=== PATIENT | male | born 1930 | race African-American/Black ===

== ENCOUNTER 2017-05-14 13:44 | Observation (INO) | payer OTHER, BC ==
[~2017-05-14] VITALS: Ht 185.4 cm; Wt 80.7 kg
[~2017-05-14 13:44] MED LIST: ACETAMINOP160 MG/5 M PER TUBE; ADULT LOW DOSE81 MG PO; ADULT TUSS100 MG/5 M PO; ALLOPURINOL 10100 M1 PO; APAP500 PO; ARICEPT10 M1 PER TUBE; ATIVAN0.5 MG PO; AZITHROMYCIN PO; CALCIUM 500 +1 EAC4 PO; CALCIUM 600 +1 EAC1 PER TUBE; CARVEDILOL25 MG PO; DEPAKOTE125 MG PER TUBE; DEPAKOTE125 MG PO; FEOSOL325 M1 PER TUBE; FUROSEMIDE 40 M40 M1 PER TUBE; HYDRALAZINE 10M10 MG PER TUBE; JUVEN PACKET1 EACH PER TUBE; LISINOPRIL10 MG PO; LISINOPRIL30 MG PO; LORAZEPAM 22 MG/1 ML PER TUBE; LORTAB 10 MG-3473 ML PER TUBE; MILK OF MA2400 MG/10 PER TUBE; MULTIVITAMINS1 EAC7 PO; NAMENDA 10 MG T10 MG PO; NAMENDA 5 MG TAB5 M1 PER TUBE; NORVASC 2.5 MG2.5 M1 PO; ORAZINC220 MG PER TUBE; PEPCID20 MG PER TUBE; RANITIDINE 150150 M1 PO; SIMVASTATIN20 MG PO; TAMSULOSIN HCL0.4 M1 PO; VITAMIN C500 M1 PER TUBE; VITAMIN D1000 UNI1 PO; [UNRECOGNIZED DRUG - CODE] PO
[2017-05-14 13:45] VITALS: BP 149/71
[2017-05-14] MEDS ORDERED: CLARITIN10 MG PO (14:03)
[2017-05-14] MEDS ORDERED: TRANSDERM-SCO1 PATC1 TD (14:03)
[2017-05-14 14:43] LABS: HEMATOCRIT 42.5 % (42.0-52.0); HEMOGLOBIN 13.6 gm/dL (14.0-18.0); MCHC 32.1 g/dL (28.0-37.0); MCV 71.8 fL (80.0-100.0); RBC 5.92 mil/uL (4.50-6.00); RDW 20.3 % (10.5-14.5)
[2017-05-14 14:55] LABS: CALCIUM 10.1 mg/dL (8.5-10.1); CREATININE 0.9 mg/dL (0.7-1.3); POTASSIUM 4.3 mmol/L (3.5-5.1)
[2017-05-14 15:00] LABS: ALBUMIN 3.1 g/dL (3.4-5.0); TOTAL BILIRUBIN 0.8 mg/dL (<0.1-1.0); TOTAL PROTEIN 8.1 g/dL (6.4-8.2)
[2017-05-14 15:07] VITALS: BP 139/77
[2017-05-14 15:30] VITALS: BP 145/85
[2017-05-14 19:18] VITALS: BP 129/86
[2017-05-15 04:24] VITALS: BP 149/97
[2017-05-15 08:35] VITALS: BP 146/90
[2017-05-15 16:58] VITALS: BP 150/113
== END 2017-05-15 18:38 ==
LOC: ER 13:44 → EROBS 14:08 → 4S 15:07
PROVIDERS: Internal Medicine
DX: K94.23 Gastrostomy malfunction (principal); I10 Essential (primary) hypertension; E78.5 Hyperlipidemia, unspecified; D64.9 Anemia, unspecified; K21.9 Gastro-esophageal reflux disease without esophagitis; M10.9 Gout, unspecified; Z86.69 Personal history of other diseases of the nervous system and sense organs